=== PATIENT | male | born 2000 ===

== ENCOUNTER 2021-05-14 18:49 | Emergency (ER) | payer OTHER, SELFPAY ==
[2021-05-14 18:52] VITALS: BP 167/88; PULSE 110; RESP 16; TEMP 36.6; O2SAT 100
--- NOTE | 2021-05-14 19:06 | ED.BURNSMOKE ---
HPI - Burn/Smoke Inhalation General Chief complaint: Burn/Smoke Inhalation Stated complaint: burn Time Seen by Provider: 05/14/21 19:00 History of Present Illness HPI Narrative: 20-year-old male presents the emergency room with a burn to his right hand. Patient states that he was making tea when it spilled on his hand. Patient states his tetanus shot is up-to-date. Related Data Allergies Allergy/AdvReac Type Severity Reaction Status Date / Time No Known Allergies Allergy Verified 05/14/21 19:24 Review of Systems Review of Systems: CONSTITUTIONAL: Denies fever, chills, or sweats. EYES: Denies visual changes, redness, or discharge. ENT: Denies rhinorrhea, congestion, sore throat, or otalgia. CARDIOVASCULAR: Denies chest pain, palpitations, or edema. RESPIRATORY: Denies cough or dyspnea. GASTROINTESTINAL: Denies abdominal pain, nausea, vomiting, or diarrhea. GENITOURINARY: Denies dysuria or hematuria. SKIN: Reports burn to right hand MUSCULOSKELETAL: Denies back pain, joint pain, or myalgia. NEUROLOGIC: Denies headache, numbness, dizziness, or weakness. PSYCHIATRIC: Denies anxiety or depression. Exam Narrative: GENERAL: Well-appearing, well-nourished, and in no acute distress. HEAD: Normocephalic, atraumatic. EYES: PERRLA and EOMI. CHEST: Clear to auscultation. No respiratory distress. No wheezes rales or rhonchi HEART: Regular rate and rhythm. No murmur heard. Normal peripheral pulses. ABDOMEN: Soft, nontender, nondistended, normal active bowel sounds. EXTREMITIES: Normal range of motion. No edema. SKIN: Superficial burn to the dorsal surface of the right hand NEURO: No focal deficits. Alert and oriented x3. PSYCH: Normal mood and affect. Course Vital Signs Vital signs: Vital Signs Temperature 36.6 C 05/14/21 18:52 Pulse Rate 110 H 05/14/21 18:52 Respiratory Rate 16 05/14/21 18:52 Blood Pressure 167/88 H 05/14/21 18:52 Pulse Oximetry 100 05/14/21 18:52 Temperature 36.6 C 05/14/21 18:52 Pulse Rate 110 H 05/14/21 18:52 Respiratory Rate 16 05/14/21 18:52 Blood Pressure 167/88 H 05/14/21 18:52 Pulse Oximetry 100 05/14/21 18:52 Discharge Plan Discharge Clinical Impression: Superficial burn of back of right hand Qualifiers: Encounter type: initial encounter Qualified Code(s): T23.161A - Burn of first degree of back of right hand, initial encounter Patient Disposition: Home, Self-Care Condition: Stable Instructions: Antibiotic Form Additional Instructions: Recommend applying Neosporin or another triple antibiotic ointment to the burn. Burn should resolve in 4 to 5 days with no complications. Make sure you drink plenty of fluid. Numbness and tingling will resolve when the swelling of the hand resolves. Prescriptions: New naproxen 500 mg tablet,delayed release (DR/EC) 500 mg PO BID Qty: 20 RF: 0 Follow-up/Referrals: Kenn Stubbs M.D. [Primary Care Provider] - Time of Disposition: 19:11
[2021-05-14] MEDS: KETOROLAC (*BKC) 60 MG/2 ML VIAL IM (19:27)
[2021-05-14 19:54] VITALS: BP 120/70; PULSE 70; RESP 16; TEMP 36.3; O2SAT 98
== END 2021-05-14 19:55 | disposition home or self-care (01) ==
PROVIDERS: Emergency Provider Nurse Practitioner Family; PCP Family Medicine
DX: T23.161A Burn of first degree of back of right hand, initial encounter (principal); T31.0 Burns involving less than 10% of body surface; X10.0XXA Contact with hot drinks, initial encounter
CPT/HCPCS: 96372; 99283; J1885

== ENCOUNTER 2022-02-05 00:07 | Emergency (ER) | payer OTHER, SELFPAY ==
[2022-02-05 00:10] VITALS: BP 154/77; PULSE 99; RESP 18; TEMP 37.7; O2SAT 98
--- NOTE | 2022-02-05 03:19 | PC.NURSE ---
patient upset and noted to state when asked what brings you in well five hours ago i i threw up blood its in this sock. but sammi been here so long its brown now. nurse responded oh im sorry youve been here for five hours out front patient asked if he was still having symptoms. states no sammi been here so long im fine now patient was asked if he still wanted to be seen patient states yes and stated i dont know why youd ask me that it was very rude to ask that patient stayed on his phone while attempting to ask questions from the moment software writer walked in room continues to stay he is fine and just wanted checked out fro previous episode
[2022-02-05] MEDS: SODIUM CHLORIDE 0.9% IV 1,000 ML 999 ML IV CONT (04:39)
[2022-02-05] MEDS: PANTOPRAZOLE SODIUM IV 40 MG VIAL IV PUSH (04:39)
[2022-02-05 04:48] LABS: Basophils Percent Auto 0.1 % (0.2-1.2); Eosinophils Percent Auto 0.1 % (0-4.4); Hematocrit 41.5 % (42.0-52.0); Hemoglobin 13.7 g/dL (14.0-18.0); Immature Granulocyte Absolute 0.03 K/mm3 (0.00-0.031); Immature Granulocyte Percent A 0.3 % (0-0.5); Lymphocytes Absolute Auto 0.98 K/mm3 (0.9-3.2); Lymphocytes Percent Auto 9.5 % (18.3-44.2); Mean Corpuscular Hemoglobin 30.1 pg (26-34); Mean Corpuscular Volume 91.2 fl (80-100); Mean Platelet Volume 9.6 fl (7.4-10.4); Monocytes Absolute Auto 0.4 K/mm3 (0.1-0.6); Monocytes Percent Auto 4.3 % (2.6-8.5); Neutrophils Absolute Auto 8.8 K/mm3 (1.3-6.7); Neutrophils Percent Auto 85.7 % (45.5-73.1); Platelet Count Result 257 k/mm3 (150-375); Red Blood Count 4.55 M/mm3 (4.6-6.20); Red Cell Distribution Width 13.1 % (11.5-14.5); White Blood Count 10.3 K/mm3 (4.5-10.0)
[2022-02-05 04:58] LABS: Alanine Aminotransferase 64 U/L (6-50); Albumin Level 4.6 g/dL (3.5-5.1); Alkaline Phosphatase 102 U/L (38-126); Anion Gap 9 mmol/L (8-16); Aspartate Amino Transferase 37 U/L (17-59); Bilirubin,Total 2.5 mg/dL (0.2-1.3); Blood Urea Nitrogen 14 mg/dL (9-20); Carbon Dioxide 27 mmol/L (22-30); Chloride 103 mmol/L (98-107); Estimated CRCL calculation 209 ml/min; Estimated Glomerular Filt Rate > 60; Glucose 101 mg/dL (65-110); Lipase 21 U/L (23-300); Sodium 139 mmol/L (137-145)
[2022-02-05 05:50] LABS: Influenza A QL RT-PCR Negative (Negative); Influenza B QL RT-PCR Negative (Negative); SARS-CoV-2 RNA PCR Negative
--- NOTE | 2022-02-05 06:03 | ED.NAVMDI ---
HPI - Nausea/Vomiting/Diarrhea General Chief complaint: Nausea/Vomiting/Diarrhea Stated complaint: vomiting Time Seen by Provider: 02/05/22 03:36 Source: patient and RN notes reviewed Mode of arrival: ambulatory Limitations: no limitations History of Present Illness HPI Narrative: This is a 21 year old male who presents for concern of vomiting blood. He states around 830 pm he developed nausea with multiple episodes of emesis. He reports he had multiple episode of nonbloody nonbilious emesis. He states his last episode had a small amount of blood so he was scared. He has not had any more episode. He denies abdominal pain, dizziness, diarrhea, fever, chills, vomiting. He states he feels better. He denies melena. He denies anticoagulation. He denies history of PUD or cirrhosis. Related Data Allergies Allergy/AdvReac Type Severity Reaction Status Date / Time No Known Allergies Allergy Verified 05/14/21 19:24 Review of Systems Constitutional: Constitutional: Denies weakness Cardiovascular: Cardiovascular: Denies syncope, Denies rapid heart rate, Denies irregular heart rhythm, Denies leg edema and Denies dyspnea Respiratory: Respiratory: Denies chest congestion, Denies hemoptysis, Denies excessive phlegm production and Denies dyspnea Gastrointestinal: Gastrointestinal: Denies abdominal pain, Denies hematochezia, Denies diarrhea, Reports nausea and Reports vomiting Genitourinary: Genitourinary: Denies hematuria, Denies dysuria, Denies penile discharge and Denies testicular pain Musculoskeletal: Musculoskeletal: Denies joint swelling, Denies loss of height and Denies muscle weakness Neurologic: Denies syncope, Denies focal weakness and Denies weakness PMFSH Past Medical History Medical History (Updated 02/05/22 @ 06:12 by Lissy Duarte MD) Patient denies medical problems Surgical History Surgical History (Updated 02/05/22 @ 06:08 by Lissy Duarte MD) No pertinent past surgical history Social History Social History (Updated 02/05/22 @ 06:08 by Lissy Duarte MD) Smoking status: Never smoker Exam Const: General: alert Nutritional Appearance: well nourished Orientation/consciousness: patient oriented x3 Limitations: no limitations HENMT: Head: normal to inspection Eyes: Pupils: Equal, round and reactive pupils present Neck: Neck: normal visual inspection Chest: Chest palpation & inspection: normal inspection of the chest Resp: Effort & Inspection: normal respiratory effort Auscultation: clear to auscultation bilaterally Cardio: Rate: regular rate Rhythm: regular rhythm Heart sounds: no murmurs GI: GI Palp: Yes Soft to palpation, No Tenderness to palpation present (GI), No Guarding due to palpation present (GI) and No Rigid due to palpation Auscultation: normal bowel sounds Skin: General skin exam: normal color Rashes: no rashes Wounds: no wounds Neuro: General: patient oriented x3, moves all extremities and CN's II-XI intact bilaterally Extrem: General: normal to inspection Psych: Mental Status: mental status grossly normal Affect: normal affect Attitude: cooperative Course Reevaluation(s) Reevaluation #1: Patients' labs do not show any significant abnormalities. He may have ana manriquez tear. vitals are normal. I have discussed with patient and he will started on PPI. He was given return precautions Date: 02/05/22 Time: 06:09 Vital Signs Vital signs: Vital Signs Temperature 99.9 F H 02/05/22 00:10 Pulse Rate 99 02/05/22 00:10 Respiratory Rate 18 02/05/22 00:10 Blood Pressure 154/77 H 02/05/22 00:10 Pulse Oximetry 98 02/05/22 00:10 Oxygen Delivery Room Air 02/05/22 00:10 Temperature 99.9 F H 02/05/22 00:10 Pulse Rate 99 02/05/22 00:10 Respiratory Rate 18 02/05/22 00:10 Blood Pressure 154/77 H 02/05/22 00:10 Pulse Oximetry 98 02/05/22 00:10 Oxygen Delivery Room Air 02/05/22 00:10 MDM - Nausea/Vomiting/Diarrhea L
== END 2022-02-05 06:46 | disposition home or self-care (01) ==
PROVIDERS: Emergency Provider General Practice; PCP Family Medicine
DX: R11.2 Nausea with vomiting, unspecified (principal); Z20.822 Contact with and (suspected) exposure to COVID-19
CPT/HCPCS: 36415; 80053; 83690; 85025; 87502; 96374; 99284; C9113; J7030; U0003; U0005